=== PATIENT | male | born 1980 | race Caucasian/White ===

== ENCOUNTER 2020-06-16 16:22 | Emergency (ER) | payer OTHER, SELFPAY ==
[2020-06-16 16:32] VITALS: BP 132/96; PULSE 86; RESP 16; TEMP 37.1; O2SAT 98
--- NOTE | 2020-06-16 16:32 | ED.SKABFB ---
HPI - Skin/Abscess/Foreign Bdy General Chief complaint: Skin/Abscess/Foreign Body Stated complaint: Spider Bite Time Seen by Provider: 06/16/20 16:33 Source: patient Mode of arrival: ambulatory Limitations: no limitations History of Present Illness HPI narrative: Anibal Hutchins is a 40 yo male with no PMH who comes with a large indurate area on top of R hand. States woke up today with it - denies getting hit, trauma, no drug use. Has hard pin sized head in center. Maintains that he has not used any drugs Related Data Allergies Allergy/AdvReac Type Severity Reaction Status Date / Time No Known Allergies Allergy Mild Verified 06/16/20 16:38 Review of Systems Review of Systems: Narrative: CONSTITUTIONAL: Denies fever, chills, sweats. EYES: Denies visual changes, redness, discharge. ENT: Denies rhinorrhea, congestion, sore throat, otalgia. CARDIOVASCULAR: Denies chest pain, palpitations, edema. RESPIRATORY: Denies dyspnea, wheezing, cough GASTROINTESTINAL: Denies abdominal pain, nausea, vomiting, diarrhea. GENITOURINARY: Denies dysuria, hematuria, abnormal discharge SKIN: Denies rash or itching. Has hard indurated angry-looking area on top of right hand NEUROLOGIC: Denies numbness, or focal weakness. PSYCHIATRIC: Denies anxiety or depression. PMFSH Past Medical History Medical History No acute medical problems Family History Family History (Updated 06/16/20 @ 17:00 by Mariya Butler CNP) Other No acute medical problems Social History Social History (Updated 06/16/20 @ 17:00 by Mariya Butler CNP) Smoking status: Former smoker Substance use: former Gender identity (if verbalized by the patient): Male Comments At time of signature, I agree with nursing past medical, surgical, social and family history. There is no relevant family history pertinent to the presenting complaint. Elevated due to pain caused from abscess in hand Exam Narrative: Exam Narrative: GENERAL: This is a well-nourished, well-developed patient, in mild distress. HEAD: normocephalic, atraumatic. EYES: PERRL. Sclera clear/white. Vision is grossly intact. EARS: External ears normal, auditory canals clear and without drainage, TMs normal without perforation. Hearing grossly intact. NOSE: External nose normal without nasal discharge, nares without redness, no rhinorrhea. THROAT: Mucous membranes moist, posterior pharynx NECK: Neck supple, non-tender CARDIOVASCULAR: Regular rate and rhythm without murmurs, gallops, or rubs. RESPIRATORY: Clear to auscultation. Breath sounds equal bilaterally. No wheezes, rales, or rhonchi. GASTROINTESTINAL: Abdomen soft, non-tender, SKIN: warm, intact with angry erythematous warm indurated abscess on dorsum of R hand denies any drug use, needle use NEURO: awake, alert, and oriented to person, place and time. There were no obvious focal neurologic abnormalities. Steady gait EXTREMITIES: Normal range of motion. BACK: Nontender without deformity Course Course Emergency Course: Patient came to express care with large indurated area on right right dorsum of hand Attempted to remove foreign object from hand although patient denies that there is any object in there small amount of pus Started on Keflex and Bactrim wrapped hand and told to soak to 3 times a day Vital Signs Vital signs: Vital Signs Temperature 98.8 F 06/16/20 16:32 Pulse Rate 86 06/16/20 16:32 Respiratory Rate 16 06/16/20 16:32 Blood Pressure 132/96 H 06/16/20 16:32 Pulse Oximetry 98 06/16/20 16:32 Temperature 98.8 F 06/16/20 16:32 Pulse Rate 86 06/16/20 16:32 Respiratory Rate 16 06/16/20 16:32 Blood Pressure 132/96 H 06/16/20 16:32 Pulse Oximetry 98 06/16/20 16:32 Procedures Other Procedure Procedure 1: Other Procedure: After cleaning area and injecting with lidocaine attempted to remove what appeared to be small object dorsum
== END 2020-06-16 17:10 | disposition home or self-care (01) ==
PROVIDERS: Emergency Provider Nurse Practitioner; PCP Internal Medicine Gastroenterology
DX: L02.511 Cutaneous abscess of right hand (principal); Z87.891 Personal history of nicotine dependence
CPT/HCPCS: 99213; G0463